=== PATIENT | male | born 1965 | race Caucasian/White ===

== ENCOUNTER 2019-02-06 15:09 | Emergency (ER) | payer OTHER ==
[~2019-02-06] VITALS: Ht 170.2 cm; Wt 104.3 kg
--- NOTE | 2019-02-06 15:10 | NUR ---
Patient is AOX4 but unable to recall the exact names & dosages of his home medications@this time.
[2019-02-06] MEDS ORDERED: EFFEXOR (15:26)
[2019-02-06] MEDS ORDERED: BP MEDICINE (15:27)
[2019-02-06] MEDS ORDERED: ONDANSETRON 4 MG/2 ML VIAL ONE (15:57)
[2019-02-06] MEDS ORDERED: LORAZEPAM 2 MG/1 ML VIAL ONE (15:58)
[2019-02-06] MEDS ORDERED: LORAZEPAM 2 MG/1 ML VIAL IV ONE (16:00)
[2019-02-06] MEDS ORDERED: IV NORMAL SALINE 1000 ML BAG IV ONE (16:00)
[2019-02-06] MEDS ORDERED: ONDANSETRON 4 MG/2 ML VIAL IV ONE (16:00)
[2019-02-06 16:05] LABS: BASOPHILS % (AUTO) 0.5 % (0.0-2.0); EOSINOPHILS # (AUTO) 0.4 K/uL (0.0-0.7); EOSINOPHILS % (AUTO) 4.9 % (0.0-7.0); HEMATOCRIT 44.7 % (36.7-47.1); HEMOGLOBIN 14.7 g/dL (12.5-16.3); LYMPHOCYTES # (AUTO) 1.8 K/uL (20.0-40.0); LYMPHOCYTES % (AUTO) 20.1 % (20.5-51.5); MEAN CORPUSCULAR HEMOGLOBIN 27.8 uug (23.8-33.4); MEAN CORPUSCULAR HGB CONC 33 g/dL (32.5-36.3); MEAN CORPUSCULAR VOLUME 84.6 fL (73.0-96.2); MONOCYTES # (AUTO) 0.8 K/uL (2.0-10.0); MONOCYTES % (AUTO) 8.4 % (0.0-11.0); NEUTROPHILS # (AUTO) 6.1 K/uL (1.8-8.9); NEUTROPHILS % (AUTO) 66.1 % (38.5-71.5); PLATELET COUNT (AUTO) 183 K/uL (152-348); RED BLOOD CELL COUNT(AUTO) 5.29 MIL/uL (4.06-5.63); WHITE BLOOD COUNT (AUTO) 9.2 K/uL (3.6-10.2)
[2019-02-06 16:11] LABS: CREATININE 0.9 mg/dL (0.6-1.3); POTASSIUM 2.9 mmol/L (3.5-5.1)
[2019-02-06 16:17] LABS: BILIRUBIN,DIRECT 0.1 mg/dL (0.0-0.2); BILIRUBIN,TOTAL 0.3 mg/dL (0.2-1.0); TOTAL PROTEIN, SERUM 7.5 g/dL (6.4-8.2)
--- NOTE | 2019-02-06 16:23 | NUR ---
PT TAKEN TO RADIOLOGY FOR CT SCAN.
--- NOTE | 2019-02-06 16:42 | NUR ---
PT BACK IN ER FROM RADIOLOGY.
[2019-02-06] MEDS ORDERED: POTASSIUM CHLORIDE 20 MEQ TAB.PRT.SR PO ONE (17:00)
[2019-02-06] MEDS ORDERED: POTASSIUM CHLORIDE 20 MEQ TAB.PRT.SR ONE (17:11)
--- NOTE | 2019-02-06 17:14 | NUR ---
Patient discharged to home in stable conditon. Written and verbal after care instructions given. Patient verbalizes understanding of instructions. ALL BELONGINGS W/ PT. PT SELF-AMBULATED W/O DIFFICULTY. 18G IV ACCESS IN LAC REMOVED PRIOR TO D/C - INNER CANNULA INTACT.
[2019-02-06 17:15] VITALS: BP 136/72
[2019-02-07] MEDS ORDERED: VENL75TA4 PO (04:08)
[2019-02-07] MEDS ORDERED: AMLO5TAB9 PO (04:08)
[2019-02-07] MEDS ORDERED: MECL-102 PO (04:08)
[2019-02-07] MEDS ORDERED: LORA0.5T PO (04:08)
== END 2019-02-06 17:16 | disposition home or self-care (01) ==
LOC: ER 15:09
DX: F41.9 Anxiety disorder, unspecified (principal); E87.6 Hypokalemia; R10.9 Unspecified abdominal pain; I10 Essential (primary) hypertension; F17.210 Nicotine dependence, cigarettes, uncomplicated; F32.9 Major depressive disorder, single episode, unspecified; F41.0 Panic disorder [episodic paroxysmal anxiety]; F15.10 Other stimulant abuse, uncomplicated; Z79.899 Other long term (current) drug therapy
CPT/HCPCS: 36415; 74176; 80048; 80076; 83690; 85025; 96374; 96375; 99284; J2060; J2405; A4663; J7030

== ENCOUNTER 2019-02-07 03:45 | Emergency (ER) | payer OTHER ==
[~2019-02-07] VITALS: Ht 175.3 cm; Wt 104.3 kg
[~2019-02-07 03:45] MED LIST: BP MEDICINE; EFFEXOR
[2019-02-07] MEDS ORDERED: ONDANSETRON 4 MG/2 ML VIAL IV ONE (04:00)
[2019-02-07] MEDS ORDERED: IV NORMAL SALINE 1000 ML BAG IV ONE (04:00)
[2019-02-07] MEDS ORDERED: LORA0.5T PO (04:08)
[2019-02-07] MEDS ORDERED: AMLO5TAB9 PO (04:08)
[2019-02-07] MEDS ORDERED: MECL-102 PO (04:08)
[2019-02-07] MEDS ORDERED: VENL75TA4 PO (04:08)
--- NOTE | 2019-02-07 04:08 | NUR ---
DR. SMITH AT BEDSIDE FOR MSE. PATIENT WALKED INTO ER WITH C/O NAUSEA/VOMITING/DIARRHEA/DIZZY THAT WOKE HIM UP THIS MORNING 1 HOUR OCC THERAPY ASST. PATIENT IS ALERT/ORIENTED X4.
[2019-02-07] MEDS ORDERED: ONDANSETRON 4 MG/2 ML VIAL ONE (04:13)
[2019-02-07] MEDS ORDERED: LORAZEPAM 2 MG/1 ML VIAL ONE (04:14)
[2019-02-07] MEDS ORDERED: LORAZEPAM 2 MG/1 ML VIAL IV ONE (04:15)
[2019-02-07 04:26] LABS: CREATININE 0.9 mg/dL (0.6-1.3); POTASSIUM 3.3 mmol/L (3.5-5.1)
[2019-02-07 04:27] LABS: BASOPHILS % (AUTO) 0.6 % (0.0-2.0); EOSINOPHILS # (AUTO) 0.5 K/uL (0.0-0.7); EOSINOPHILS % (AUTO) 6.3 % (0.0-7.0); HEMATOCRIT 42.8 % (36.7-47.1); HEMOGLOBIN 14.3 g/dL (12.5-16.3); LYMPHOCYTES # (AUTO) 1.3 K/uL (20.0-40.0); MEAN CORPUSCULAR HEMOGLOBIN 28.6 uug (23.8-33.4); MEAN CORPUSCULAR HGB CONC 33 g/dL (32.5-36.3); MEAN CORPUSCULAR VOLUME 85.7 fL (73.0-96.2); MONOCYTES # (AUTO) 0.9 K/uL (2.0-10.0); MONOCYTES % (AUTO) 11.9 % (0.0-11.0); NEUTROPHILS # (AUTO) 4.6 K/uL (1.8-8.9); NEUTROPHILS % (AUTO) 63.2 % (38.5-71.5); PLATELET COUNT (AUTO) 164 K/uL (152-348); RED BLOOD CELL COUNT(AUTO) 4.99 MIL/uL (4.06-5.63); WHITE BLOOD COUNT (AUTO) 7.3 K/uL (3.6-10.2)
[2019-02-07 04:32] LABS: BILIRUBIN,DIRECT 0.1 mg/dL (0.0-0.2); BILIRUBIN,TOTAL 0.3 mg/dL (0.2-1.0); TOTAL PROTEIN, SERUM 7.1 g/dL (6.4-8.2)
--- NOTE | 2019-02-07 04:37 | NUR ---
Patient back to ER from CT.
--- NOTE | 2019-02-07 05:06 | NUR ---
Patient asleep, arouse easily to verbal stimuli. Denies any further N/V or dizziness. Continue to monitor.
[2019-02-07] MEDS ORDERED: POTASSIUM CHLORIDE 20 MEQ TAB.PRT.SR PO ONE (05:45)
[2019-02-07] MEDS ORDERED: POTASSIUM CHLORIDE 20 MEQ TAB.PRT.SR ONE (05:49)
[2019-02-07 06:01] VITALS: BP 138/88
--- NOTE | 2019-02-07 06:08 | NUR ---
Patient discharged to home in stable conditon. Written and verbal after care instructions given. Patient verbalizes understanding of instructions. IV discontinued. Patient ambulated out of the ER with steady gait. All belongings with patient.
== END 2019-02-07 06:08 | disposition home or self-care (01) ==
LOC: ER 03:48
DX: R42 Dizziness and giddiness (principal); R11.2 Nausea with vomiting, unspecified; R19.7 Diarrhea, unspecified; E87.6 Hypokalemia; I45.89 Other specified conduction disorders; F41.9 Anxiety disorder, unspecified; I10 Essential (primary) hypertension; F17.210 Nicotine dependence, cigarettes, uncomplicated; F12.10 Cannabis abuse, uncomplicated; Z79.899 Other long term (current) drug therapy
CPT/HCPCS: 36415; 70450; 74176; 80048; 80076; 83690; 83735; 84484; 85025; 93005; 96361; 96374; 96375; 99284; J2060; J2405; 70030-TC; A4663; J7030

== ENCOUNTER 2019-02-19 02:45 | Emergency (ER) | payer OTHER ==
[~2019-02-19] VITALS: Ht 170.2 cm; Wt 108.9 kg
[~2019-02-19 02:45] MED LIST changes: +AMLO5TAB9 PO; -BP MEDICINE; -EFFEXOR; +LORA0.5T PO; +MECL-102 PO; +VENL75TA4 PO
--- NOTE | 2019-02-19 03:00 | NUR ---
PT STATED HE DID DRUGS AND HE WANTS TO HURTT HIMSELF BUT NO PLAN AT HIS SIDE COMFORT AND SAFETY MAINTAINED
[2019-02-19] MEDS ORDERED: LORAZEPAM 2 MG/1 ML VIAL IV ONE ×2 (03:15→13:45)
[2019-02-19] MEDS ORDERED: IV NORMAL SALINE 1000 ML BAG IV ONE ×2 (03:15→12:30)
[2019-02-19] MEDS ORDERED: LORAZEPAM 2 MG/1 ML VIAL ONE ×2 (03:34→13:47)
[2019-02-19] MEDS ORDERED: IV D5/ 0.9% NACL 1,000 ML IV ONE (03:34)
[2019-02-19 03:38] LABS: BASOPHILS # (AUTO) 0.1 K/uL (0.0-8.0); BASOPHILS % (AUTO) 0.7 % (0.0-2.0); EOSINOPHILS # (AUTO) 0.6 K/uL (0.0-0.7); EOSINOPHILS % (AUTO) 6.6 % (0.0-7.0); HEMATOCRIT 48.1 % (36.7-47.1); HEMOGLOBIN 16.2 g/dL (12.5-16.3); LYMPHOCYTES # (AUTO) 2.4 K/uL (20.0-40.0); LYMPHOCYTES % (AUTO) 26.1 % (20.5-51.5); MEAN CORPUSCULAR HEMOGLOBIN 28.4 uug (23.8-33.4); MEAN CORPUSCULAR HGB CONC 34 g/dL (32.5-36.3); MEAN CORPUSCULAR VOLUME 84.5 fL (73.0-96.2); MONOCYTES # (AUTO) 0.7 K/uL (2.0-10.0); MONOCYTES % (AUTO) 7.4 % (0.0-11.0); NEUTROPHILS # (AUTO) 5.5 K/uL (1.8-8.9); NEUTROPHILS % (AUTO) 59.2 % (38.5-71.5); PLATELET COUNT (AUTO) 217 K/uL (152-348); WHITE BLOOD COUNT (AUTO) 9.3 K/uL (3.6-10.2)
[2019-02-19 03:49] LABS: CARBON DIOXIDE 22 mmol/L (21-32); CHLORIDE 104 mmol/L (98-107); CREATININE 0.9 mg/dL (0.6-1.3); GLUCOSE 105 mg/dL (74-106); UREA NITROGEN, BLOOD 10 mg/dL (7-18)
[2019-02-19 03:55] LABS: ALANINE AMINOTRANSFERASE 41 U/L (16-63); ALKALINE PHOSPHATASE 102 U/L (50-136); ASPARTATE AMINOTRANSFERASE 32 U/L (15-37); BILIRUBIN,DIRECT 0.1 mg/dL (0.0-0.2); BILIRUBIN,TOTAL 0.5 mg/dL (0.2-1.0); POTASSIUM 2.8 mmol/L (3.5-5.1); TOTAL PROTEIN, SERUM 7.4 g/dL (6.4-8.2)
[2019-02-19 03:58] LABS: ACETAMINOPHEN < 2.0 ug/mL (10-30)
[2019-02-19 03:59] LABS: ETHANOL 45 MG/DL (0-0)
[2019-02-19] MEDS ORDERED: POTASSIUM CHLORIDE 20 MEQ TAB.PRT.SR PO ONE (04:00)
[2019-02-19] MEDS ORDERED: IV 0.9% SODIUM CHLORID+ 20 KCL 1,000 ML IV ONE (04:00)
[2019-02-19 04:20] LABS: THYROID STIMULATING HORMONE 3.156 mIU/mL (0.358-3.740)
[2019-02-19] MEDS ORDERED: ARIP10TA9 PO (04:28)
--- NOTE | 2019-02-19 04:30 | NUR ---
PT WAS GIVEN ATIVAN EARLIER WITH EFFECT COMFORT AND SAFETY MAINTAINED PT HAS BEEN CALM AND COOPERATIVE
[2019-02-19] MEDS ORDERED: POTASSIUM CHLORIDE 10 MEQ TAB.PRT.SR ONE (04:47)
--- NOTE | 2019-02-19 06:30 | NUR ---
NO CHANGE IN CONDITION PT IS COOPERATIVE AND CALM NO S/S HI OR SI AT HIS SIDE
[2019-02-19 07:42] LABS: *BILIRUBIN,URIN NEGATIVE (NEGATIVE); *CLARITY,URINE CLEAR (CLEAR); *COLOR,URINE YELLOW (YELLOW); *KETONES,URINE 1+ (NEGATIVE); *UROBILINOGEN,URINE 0.2 E.U./dl (NORMAL); LEUKOCYTE ESTERASE ,URINE NEGATIVE (NEGATIVE); NITRITE, URINE NEGATIVE (NEGATIVE); PH,URINE 6.5 (5.0-8.0); UGLUCOSE NEGATIVE (NEGATIVE)
[2019-02-19 07:52] LABS: *BLOOD, URINE TRACE INTACT (NEGATIVE); MUCUS,URINE FEW /LPF (0-FEW); SQUAMOUS EPITHELIAL CELL,UR NONE SEEN /HPF (NONE SEEN)
[2019-02-19 07:53] LABS: BACTERIA,URINE NONE SEEN /HPF (NONE SEEN); RBC,URINE 0-3 /HPF (0-3); WBC,URINE 0-3 /HPF (0-3)
--- NOTE | 2019-02-19 08:55 | NUR ---
CRISIS SHARE HOLDER GOPAL WAS CALLED TO EVALUATE THE PT. TRUDI IS 1 HR.
[2019-02-19 10:31] LABS: *AMPHETAMINE, URINE POSITIVE (NEGATIVE); *COCCAINE, URINE NEGATIVE (NEGATIVE)
[2019-02-19 10:32] LABS: *CANNABINOID, URINE NEGATIVE (NEGATIVE); *OPIATE, URINE NEGATIVE (NEGATIVE); *PHENCYCLIDINE SCREEN,URINE NEGATIVE (NEGATIVE)
[2019-02-19 10:33] LABS: *BARBITURATE, URINE NEGATIVE (NEGATIVE)
--- NOTE | 2019-02-19 11:55 | NUR ---
1145AM Called [facility] per ED MD request, spoke with Mohamud who sent a page out for Dr. Sears. SHIV Sierra
--- NOTE | 2019-02-19 11:57 | NUR ---
[address] Anglin on phone with Dr. Sears
[2019-02-19] MEDS ORDERED: MISCELLANEOUS MED XX ONE (18:30)
--- NOTE | 2019-02-19 18:58 | NUR ---
CRISIS DEPUTY JUVENILE OFFICER GOPAL EVALUATED THE PT. PT SUPPOSED TO GO TO [facility] BY VOLUNTARY ADMISSION. NURSING ASSISTANT GENERAL MANAGER HAIM FROM [facility] APPROVED PT's TRNSFER, PT's INFORMATION WAS FAXED TO HIM ( FAX #[phone], PHONE #[phone]). INTAKE DEPARTMENT IS GOING TO CALL US WITH ROOM NUMBER, ACCEPTING DOCTOR NAME. REPORT GIVEN TO DOLL WIG MAKER ROOTED HAIR RN TRACI.
[2019-02-19] MEDS ORDERED: APIXABAN 5 MG TABLET PO ONE (19:01)
--- NOTE | 2019-02-19 19:22 | NUR ---
Received report from Peter MÁRQUEZ, assumed care of pt.,
--- NOTE | 2019-02-19 19:40 | NUR ---
Received call from Chica at [facility], pt. to be admitted w/ Dr. Weeks, Unit 2, give report to [phone] ext [phone]
--- NOTE | 2019-02-19 19:52 | NUR ---
Called [facility] [phone], [facility] is listed as primary transport - called [facility] at [phone] to activate [facility] transport,
--- NOTE | 2019-02-19 20:07 | NUR ---
Spoke w/ Artem at [facility], awaiting call back for ETA
--- NOTE | 2019-02-19 20:21 | NUR ---
ETA for transport 2100
--- NOTE | 2019-02-19 20:27 | NUR ---
Gave report to Abhi at [facility],
--- NOTE | 2019-02-19 20:41 | NUR ---
Unit [facility] here for transport, IV removed,
--- NOTE | 2019-02-19 20:53 | NUR ---
Pt. taken off unit via stretcher by BLS unit #124, d/c papers signed, all belongings w/ pt., ID band/IV removed, VSS, NAD
== END 2019-02-19 20:58 | disposition short-term general hospital (02) ==
LOC: ER 02:46
DX: I48.0 Paroxysmal atrial fibrillation (principal); R45.851 Suicidal ideations; F32.9 Major depressive disorder, single episode, unspecified; F15.10 Other stimulant abuse, uncomplicated; F41.9 Anxiety disorder, unspecified; E87.6 Hypokalemia; I10 Essential (primary) hypertension; F17.210 Nicotine dependence, cigarettes, uncomplicated; Z71.6 Tobacco abuse counseling; Z79.899 Other long term (current) drug therapy
CPT/HCPCS: 36415; 71045; 80048; 80076; 80307; 81000; 81001; 83735; 84132; 84443; 84484 ×2; 85025; 93005 ×2; 96365; 96366; 96375; 96376; 99285; 99406; G0480 ×2; G0481; J2060 ×2; J7042; 70030-TC; A4663; J7030

== ENCOUNTER 2021-08-15 21:28 | Inpatient (IN) | payer OTHER ==
[~2021-08-15] VITALS: Ht 170.2 cm; Wt 102.1 kg
[~2021-08-15 21:28] MED LIST changes: +AMLO-212 PO; -AMLO5TAB9 PO; +ARIP10TA9 PO; -MECL-102 PO; +MECL-159 PO
--- NOTE | 2021-08-15 21:46 | NUR ---
pt a/o x3 amb with steady gait c/o cp denies sob. pt able to speak in complete sentences. no slurred speech noted.
[2021-08-15 22:04] LABS: HEMATOCRIT 43.9 % (36.7-47.1); MEAN CORPUSCULAR VOLUME 86.7 fL (73.0-96.2); PLATELET COUNT (AUTO) 155 K/uL (152-348)
[2021-08-15 22:29] LABS: POTASSIUM 2.9 mmol/L (3.5-5.1)
[2021-08-15] MEDS ORDERED: IV NS 1000 ML 1,000 ML IV ONE (22:30)
[2021-08-15] MEDS ORDERED: ASPIRIN 81 MG TAB.CHEW PO ONE (22:30)
[2021-08-15] MEDS ORDERED: FAMOTIDINE. 20 MG/2 ML VIAL IV ONE ×2 (22:30→23:20)
[2021-08-15 22:32] LABS: *BILIRUBIN,URIN NEGATIVE (NEGATIVE); *BLOOD, URINE 1+ (NEGATIVE); *CLARITY,URINE CLEAR (CLEAR); *COLOR,URINE YELLOW (YELLOW); *KETONES,URINE TRACE (NEGATIVE); *UROBILINOGEN,URINE 0.2 E.U./dl (NORMAL); LEUKOCYTE ESTERASE ,URINE NEGATIVE (NEGATIVE); NITRITE, URINE NEGATIVE (NEGATIVE); PH,URINE 5.5 (5.0-8.0); UGLUCOSE NEGATIVE (NEGATIVE)
[2021-08-15 22:34] LABS: BILIRUBIN,DIRECT 0.1 mg/dL (0.0-0.2); BILIRUBIN,TOTAL 0.3 mg/dL (0.2-1.0); TOTAL PROTEIN, SERUM 7.4 g/dL (6.4-8.2)
[2021-08-15 22:42] LABS: THYROID STIMULATING HORMONE 2.229 mIU/mL (0.358-3.740)
[2021-08-15 22:42] LABS: *AMPHETAMINE, URINE POSITIVE (NEGATIVE); *CANNABINOID, URINE NEGATIVE (NEGATIVE); *COCCAINE, URINE NEGATIVE (NEGATIVE); *OPIATE, URINE NEGATIVE (NEGATIVE); *PHENCYCLIDINE SCREEN,URINE NEGATIVE (NEGATIVE)
--- NOTE | 2021-08-15 23:09 | NUR ---
Dr. Levine speaking with Valentín Ruelas panel doctor for [employer].
[2021-08-15] MEDS ORDERED: ASPIRIN 81 MG TAB.CHEW ONE (23:20)
[2021-08-15] MEDS ORDERED: POTASSIUM CHLORIDE 20 MEQ TAB.PRT.SR PO ONE (23:30)
[2021-08-15] MEDS ORDERED: MAG HYDROX/AL HYDROX/SIMETH 30 ML LIQUID UDC PO PRN (23:30)
[2021-08-15] MEDS ORDERED: LORAZEPAM 0.5 MG TABLET PO PRN (23:30)
[2021-08-15] MEDS ORDERED: ACETAMINOPHEN 325 MG TABLET PO PRN (23:30)
[2021-08-15] MEDS ORDERED: ONDANSETRON 4 MG/2 ML VIAL IV PRN (23:30)
[2021-08-15] MEDS ORDERED: IV 1/2NS 1000 ML 1,000 ML IV PRN (23:30)
[2021-08-15] MEDS ORDERED: MAGNESIUM SULFATE/D5W 200 ML ONE (23:32)
[2021-08-15] MEDS ORDERED: POTASSIUM CHLORIDE 20 MEQ TAB.PRT.SR ONE (23:33)
[2021-08-15] MEDS: MAGNESIUM SULFATE/D5W 100 ML IV SCH (23:34)
[2021-08-15] MEDS ORDERED: DILT120T14 PO (23:36)
[2021-08-15] MEDS ORDERED: BENA40TA8 PO (23:36)
[2021-08-15] MEDS ORDERED: VENL75TA4 PO (23:36)
[2021-08-15] MEDS ORDERED: LEVE500T9 PO (23:36)
--- NOTE | 2021-08-15 23:46 | NUR ---
pt is admitted to tele status. pt is aware.
[2021-08-16] MEDS: MAGNESIUM SULFATE/D5W 100 ML IV SCH (00:09)
--- NOTE | 2021-08-16 02:14 | NUR ---
pt with eyes closed easily aroused to verbal. denies c/p or sob.
[2021-08-16] MEDS ORDERED: LORAZEPAM 2 MG/1 ML VIAL IV PRN ×2 (02:45→13:30)
[2021-08-16] MEDS ORDERED: LORAZEPAM 2 MG/1 ML VIAL IV ONE (03:45)
[2021-08-16] MEDS ORDERED: LORAZEPAM 2 MG/1 ML VIAL ONE ×2 (03:53→13:42)
[2021-08-16 04:20] LABS: HEMATOCRIT 43.9 % (36.7-47.1); MEAN CORPUSCULAR HEMOGLOBIN 29.4 uug (23.8-33.4); MEAN CORPUSCULAR VOLUME 87.1 fL (73.0-96.2); PLATELET COUNT (AUTO) 144 K/uL (152-348)
[2021-08-16 04:49] LABS: CREATININE 0.7 mg/dL (0.6-1.3); MAGNESIUM 2.4 mg/dL (1.8-2.4)
[2021-08-16] MEDS ORDERED: DILTIAZEM HCL 25 MG IV IV ONE (05:45)
[2021-08-16] MEDS ORDERED: DILTIAZEM HCL 25 MG IV ONE (05:49)
--- NOTE | 2021-08-16 06:24 | NUR ---
pt hr stable in the 80 to 100. pt denies pain or sob.
[2021-08-16] MEDS ORDERED: VENL150C58 PO (07:00)
[2021-08-16] MEDS ORDERED: PANTOPRAZOLE SODIUM 40 MG TABLET.DR PO SCH (07:00)
[2021-08-16] MEDS ORDERED: VENL75CA62 PO (07:00)
--- NOTE | 2021-08-16 07:40 | NUR ---
Pt in stable condition. Self ambulated to restroom and returned to [facility].
[2021-08-16] MEDS ORDERED: PANTOPRAZOLE SODIUM 40 MG TABLET.DR PO ONE (07:50)
[2021-08-16] MEDS ORDERED: ARIPIPRAZOLE 10 MG TABLET PO SCH (09:00)
[2021-08-16] MEDS ORDERED: AMLODIPINE 5 MG TABLET PO SCH (09:00)
[2021-08-16] MEDS ORDERED: ASPIRIN 81 MG TAB.CHEW PO SCH (09:00)
[2021-08-16] MEDS ORDERED: MECLIZINE HCL 25 MG TABLET PO SCH (09:00)
[2021-08-16] MEDS ORDERED: VENLAFAXINE HCL 75 MG PO SCH (09:00)
[2021-08-16] MEDS ORDERED: MECLIZINE HCL 25 MG TABLET ONE (09:37)
[2021-08-16] MEDS ORDERED: ASPIRIN 81 MG TAB.CHEW ONE (09:37)
[2021-08-16] MEDS ORDERED: AMLODIPINE 5 MG TABLET ONE (09:37)
[2021-08-16] MEDS ORDERED: ARIPIPRAZOLE 5 MG TABLET ONE (09:38)
[2021-08-16] MEDS ORDERED: POTASSIUM CHLORIDE 20 MEQ TAB.PRT.SR PO ONE ×2 (10:00→12:00)
[2021-08-16] MEDS ORDERED: POTASSIUM CHLORIDE 20 MEQ TAB.PRT.SR ONE (10:45)
--- NOTE | 2021-08-16 10:54 | NUR ---
Patient is resting comfortably on gurney with eyes closed, pending accepting telemetry nurse@this time.
[2021-08-16] MEDS ORDERED: DILTIAZEM HCL 120 MG PO SCH (11:30)
[2021-08-16] MEDS ORDERED: DILTIAZEM HCL 60 MG TABLET PO SCH (11:45)
--- NOTE | 2021-08-16 11:55 | NUR ---
Provider Valentín Khan saw pt at bedside. V.O to D/C NS 75mL/hr, give 1L NS bolus. As long as pt is stable after completion of new L, pt can be D/C home. Pt aware and agreed with plan.
[2021-08-16 12:04] LABS: BACTERIA,URINE NONE SEEN /HPF (NONE SEEN); RBC,URINE 0-3 /HPF (0-3); SQUAMOUS EPITHELIAL CELL,UR FEW /HPF (NONE SEEN); WBC,URINE NONE SEEN /HPF (0-3)
[2021-08-16] MEDS ORDERED: IV NS 1000 ML 1,000 ML IV ONE (12:30)
[2021-08-16] MEDS ORDERED: DILTIAZEM HCL 60 MG TABLET ONE (12:34)
--- NOTE | 2021-08-16 13:25 | NUR ---
IV fluids complete. Pt states feeling axious, medication administered per provider order.
--- NOTE | 2021-08-16 14:08 | NUR ---
VSS, pt in stable condition. No acute distress at this time. Per Valentín Khan, pt ready for D/C. Saline lock D/C, clear and intact.
--- NOTE | 2021-08-16 15:01 | NUR ---
D/C in stable condition. Addendum: 08/16/21 at 1512 by TIKI BASURTO RN Amended: Links added.
[2021-08-18 07:40] VITALS: BP 155/88
== END 2021-08-16 15:01 | disposition home or self-care (01) | DRG 241 ==
LOC: ER 21:36 → TRANSITION 08-16 01:25
PROVIDERS: ADMIT Nurse Practitioner Family; ATTEND Nurse Practitioner Family
DX: K29.20 Alcoholic gastritis without bleeding (principal); E87.6 Hypokalemia; F10.129 Alcohol abuse with intoxication, unspecified; I48.91 Unspecified atrial fibrillation; Y90.7 Blood alcohol level of 200-239 mg/100 ml; F15.90 Other stimulant use, unspecified, uncomplicated; F17.210 Nicotine dependence, cigarettes, uncomplicated; I10 Essential (primary) hypertension; Z20.822 Contact with and (suspected) exposure to COVID-19; Z79.899 Other long term (current) drug therapy; Z85.820 Personal history of malignant melanoma of skin; Z91.14 Patient's other noncompliance with medication regimen; Z83.3 Family history of diabetes mellitus
CPT/HCPCS: 36415; 70030-TC; 71045; 83735; 84443; 85025; 85730; 93005; A4663; G0378; G0480; J2060; J3475; J3490; J7030; J8597